=== PATIENT | male | born 1980 | race Hispanic/Latino ===

== ENCOUNTER 2023-04-11 16:55 | Emergency (ER) | payer OTHER, BC ==
[~2023-04-11] VITALS: Ht 160 cm; Wt 98.0 kg
[2023-04-11] MEDS ORDERED: LISINOPRIL-HCT1 EAC1 PO (17:06)
[2023-04-11] MEDS ORDERED: K-TAB ER20 MEQ PO ×2 (17:06→17:40)
[2023-04-11] MEDS ORDERED: SINGULAIR10 MG PO (17:06)
[2023-04-11 17:18] LABS: BASOPHILS 0.8 % (0-2); EOSINOPHILS 1.8 % (0-6); HEMATOCRIT 42.5 % (35.0-50.0); HEMOGLOBIN 15.2 g/dL (12.0-18.0); LYMPHOCYTES 32.8 % (24-44); MCH 30.5 (27-36); MCHC 35.8 g/dl (30-36); MCV 85.2 fl (81-99); MONOCYTES 8.3 % (0-12); NEUTROPHILS 56.3 % (39-80); PLATELET COUNT 293 K/uL (140-440); RBC 4.98 M/ul (4.3-5.7); RDW 13.4 (10.5-15.0)
[2023-04-11 17:33] LABS: ALBUMIN/GLOBULIN RATIO 1.14 (1.1-2.4); ANION GAP 9.9 (7-21); BILIRUBIN, TOTAL 1.1 ng/dL (0.2-1.0); BUN/CREATININE RATIO 13.13 (6.0-28.6); CALCIUM 9.2 mg/dL (8.5-10.1); CREATININE, SERUM 0.99 mg/dL (0.70-1.30); POTASSIUM 2.9 mmol/L (3.5-5.1); PROTEIN, TOTAL 7.5 g/dL (6.4-8.2)
[2023-04-11] MEDS ORDERED: POTASSIUM CHLORIDE 10 MEQ TABCR PO ONE (17:45)
[2023-04-11 18:07] VITALS: BP 138/75
--- NOTE | 2023-04-14 23:48 | EKG ---
[facility] [address] [facility] [place], [place] [address] Signed Sinus tachycardia with 1st degree AV block Left axis deviation Delayed transition Left ventricular hypertrophy with QRS widening ( R in aVL , [place] product ) Confirmed by Junior Ashton M.D. ([id number]) on 04/14/2023 11:48:36 PM Electronically Signed By: JUNIOR ASHTON MD 04/14/23 [id number] PATIENT NAME: DIYA SHELL JR Electrocardiogram DATE OF : 78 PHYSICIAN: JUNIOR ASHTON MD REPORT #: [id number] REPORT IS CONFIDENTIAL AND NOT TO BE RELEASED WITHOUT AUTHORIZATION
== END 2023-04-11 18:13 | disposition home or self-care (01) ==
LOC: ED 16:55
PROVIDERS: Family Medicine
DX: E87.6 Hypokalemia (principal); I10 Essential (primary) hypertension; Z79.899 Other long term (current) drug therapy
CPT/HCPCS: 36415; 80053; 82553; 83735; 85025; 93005; 93010; 99283-25; A9270